=== PATIENT | female | born 1960 | race Caucasian/White ===

== ENCOUNTER 2018-10-30 06:53 | Day surgery (SDC) | payer BC ==
[~2018-10-30] VITALS: Ht 157.5 cm; Wt 63.3 kg
[~2018-10-30 06:53] MED LIST: NO MEDS
[2018-10-30 08:16] VITALS: Ht 157.5 cm; Wt 63.3 kg
[2018-10-30 08:22] VITALS: BP 123/61; PULSE 62; RESP 18
[2018-10-30] MEDS ORDERED: LIDOCAINE 4% SOLUTION 50 ML BTL ONE (08:30)
[2018-10-30 09:27] VITALS: BP 108/64; PULSE 82; RESP 18
[2018-10-30] MEDS ORDERED: MIDAZOLAM 1 MG/ML 2 ML INJ ONE ×2 (09:38)
[2018-10-30] MEDS ORDERED: FENTAnyl 50 MCG/ML VIAL ONE (09:38)
[2018-10-30 09:49] VITALS: BP 108/64; PULSE 62; RESP 18
== END 2018-10-30 14:10 | disposition home or self-care (01) ==
LOC: GIL 06:53
PROVIDERS: ATTEND Internal Medicine Gastroenterology
DX: Z12.11 Encounter for screening for malignant neoplasm of colon (principal); D12.3 Benign neoplasm of transverse colon; K29.50 Unspecified chronic gastritis without bleeding
CPT/HCPCS: 43239; 45385; 88305; 88312; J2250; J3010; Z7610